=== PATIENT | female | born 1940 | race Caucasian/White ===

== ENCOUNTER 2016-11-21 06:18 | Observation (INO) | payer OTHER, BC ==
[~2016-11-21] VITALS: Ht 152.4 cm; Wt 60.5 kg
[2016-11-21 07:18] LABS: HEMATOCRIT 40.2 % (36.0-46.0); MCH 26.3 PG (29.0-34.0); MCHC 32.8 G/DL (30.0-36.0); MCV 80.1 FL (83-99); MEAN PLAT.VOLUME 10.6 uM^3 (9.5-12.4); PLATELET COUNT 232 K/uL (156-360); RBC DIS.WIDTH-CV 13.5 % (11.8-14.6); RBC DIS.WIDTH-SD 38.3 % (39-53); RED BLOOD COUNT 5.02 M/uL (3.80-5.20)
[2016-11-21 07:28] LABS: INTER. NORMALIZED RATIO 1.1; PROTHROMBIN TIME 11.4 (9.2-11.2); PTT 23.8 (25-32)
[2016-11-21 07:52] LABS: ANION GAP 9 MEQ/L (2-14); CHLORIDE 106 MEQ/L (99-109); GFR ESTIMATE (CALCULATED) > 59 mL/min/; GLUCOSE 152 mg/dL (70-99); POTASSIUM 3.4 MEQ/L (3.7-5.4); SAMPLE HEMOLYSIS CHECK 0; SAMPLE ICTERIC CHECK 0; SAMPLE LIPEMIA CHECK 0; SODIUM 140 MEQ/L (136-147); UREA NITROGEN (BUN) 22 mg/dL (9-23)
[2016-11-21 07:54] LABS: TROP-I INTERPRETATION NEGATIVE; TROPONIN-I < 0.01 ng/mL (0.0-0.30)
[2016-11-21 08:45] LABS: ADD MIUA? YES; BILIRUBIN NEGATIVE; BLOOD NEGATIVE; COLOR YELLOW ((YELLOW)); GLUCOSE (STRIP) NEGATIVE; KETONES TRACE; LEUKOCYTES MODERATE; NITRITE NEGATIVE; PROTEIN (STRIP) NEGATIVE; SPECIFIC GRAVITY 1.017 (1.000-1.030)
[2016-11-21 09:08] LABS: RED BLOOD CELLS NONE SEEN /HPF (0-5); WHITE BLOOD CELLS 0-5 /HPF (0-5)
[2016-11-21 09:09] LABS: BACTERIA NONE SEEN; CASTS PRESENT /LPF; CRYSTALS NONE SEEN; EPITHELIAL CELLS 1+; HYALINE CASTS 0-5 /LPF; MUCUS NONE SEEN
[2016-11-21] MEDS ORDERED: LOW DOSE ASPIRI81 M1 PO (09:39)
[2016-11-21] MEDS ORDERED: ULTRAM50 MG PO (09:39)
[2016-11-21] MEDS ORDERED: PROTONIX40 MG PO (09:39)
[2016-11-21] MEDS ORDERED: PLAVIX75 MG PO (09:40)
[2016-11-21] MEDS ORDERED: FOSAMAX70 MG PO (09:40)
[2016-11-21] MEDS ORDERED: MEVACOR20 MG PO (09:40)
[2016-11-21] MEDS ORDERED: EXELON PATCH9.5 MG TD (09:41)
[2016-11-21 12:42] VITALS: BP 161/70
[2016-11-21 16:10] VITALS: BP 165/78
[2016-11-21 16:41] LABS: TROP-I INTERPRETATION NEGATIVE; TROPONIN-I < 0.01 ng/mL (0.0-0.30)
[2016-11-21 17:23] LABS: Estimated Average Glucose 157 mg/dL (70-123); HEMOGLOBIN A1c (GLYCOHEMOGLOB) 7.1 % HGB (Below 5.7)
[2016-11-22 00:35] VITALS: BP 142/63
[2016-11-22 04:00] VITALS: BP 151/70
[2016-11-22 06:31] LABS: HDL CHOLESTEROL 40 MG/DL (Desirable>=50); LDL CHOLESTEROL 88 mg/dL (Desirable<100); NON-HDL CHOLESTEROL 122 mg/dL (Desirable<160); TOTAL CHOLESTEROL 162 mg/dL (Desirable<200); TRIGLYCERIDES 170 MG/DL (Normal: <150)
[2016-11-22 08:25] VITALS: BP 158/75
[2016-11-22 11:56] VITALS: BP 163/76
[2016-11-22 16:01] VITALS: BP 156/72
== END 2016-11-22 17:11 | disposition home health service (06) ==
LOC: EME 06:18 → EDOF 09:32 → 5WEST 11:06
PROVIDERS: Internal Medicine; Nurse Practitioner Family
DX: R20.0 Anesthesia of skin (principal); R42 Dizziness and giddiness; E86.0 Dehydration; R06.00 Dyspnea, unspecified; Z86.73 Personal history of transient ischemic attack (TIA), and cerebral infarction without residual deficits; F03.90 Unspecified dementia, unspecified severity, without behavioral disturbance, psychotic disturbance, mood disturbance, and anxiety; Z87.891 Personal history of nicotine dependence
CPT/HCPCS: 70450; 70551; 71020; 80048; 80061; 81003; 83036; 84443; 84484; 85027; 85610; 85730; 93005; 93306; 93880; 99281; 99285; G0378; G8978 GP CJ; G8979 GP CI; J1650; J7030

== ENCOUNTER 2017-04-04 19:53 | Emergency (ER) | payer OTHER, BC ==
[~2017-04-04] VITALS: Ht 152.4 cm; Wt 57.9 kg
[~2017-04-04 19:53] MED LIST: EXELON PATCH9.5 MG TD; FOSAMAX70 MG PO; LOW DOSE ASPIRI81 M1 PO; MEVACOR20 MG PO; PLAVIX75 MG PO; PROTONIX40 MG PO; ULTRAM50 MG PO
[2017-04-04 20:33] LABS: HEMATOCRIT 39.7 % (36.0-46.0); MCH 27.3 PG (29.0-34.0); MCHC 32.7 G/DL (30.0-36.0); MCV 83.2 FL (83-99); MEAN PLAT.VOLUME 9.9 uM^3 (9.5-12.4); PLATELET COUNT 245 K/uL (156-360); RBC DIS.WIDTH-CV 13.7 % (11.8-14.6); RED BLOOD COUNT 4.77 M/uL (3.80-5.20); WHITE BLOOD COUNT 10.9 K/uL (4.1-10.2)
[2017-04-04 20:41] LABS: CHLORIDE 105 mEq/L (99-109); POTASSIUM 3.7 mEq/L (3.7-5.4); SODIUM 138 mEq/L (136-147)
[2017-04-04 20:43] LABS: GLUCOSE 156 mg/dL (70-99)
[2017-04-04 20:45] LABS: ANION GAP 10 MEQ/L (2-14)
[2017-04-04 20:47] LABS: GFR ESTIMATE (CALCULATED) 51 mL/min/
[2017-04-04 20:48] LABS: UREA NITROGEN (BUN) 17 mg/dL (9-23)
[2017-04-04 21:38] LABS: ADD MIUA? YES; BILIRUBIN NEGATIVE; BLOOD NEGATIVE; COLOR YELLOW ((YELLOW)); GLUCOSE (STRIP) NEGATIVE; KETONES 20; LEUKOCYTES TRACE; NITRITE NEGATIVE; PROTEIN (STRIP) 30; SPECIFIC GRAVITY 1.012 (1.000-1.030); UROBILINOGEN 0.2 MG/DL (0.2-1.0)
[2017-04-04 21:41] LABS: BACTERIA RARE /HPF; EPITHELIAL CELLS RARE /HPF; GRANULAR CASTS 0-5 /LPF; MUCUS 1+ /LPF; RED BLOOD CELLS 0-5 /HPF (0-5)
[2017-04-04] MEDS ORDERED: BACTRIM,SEPT1 TABLET PO (22:33)
[2017-04-04] MEDS ORDERED: ZOFRAN4 MG PO (22:34)
[2017-04-04 23:29] VITALS: BP 105/64
== END 2017-04-04 23:32 | disposition home or self-care (01) ==
LOC: EME 19:53
PROVIDERS: Emergency Medicine
DX: N39.0 Urinary tract infection, site not specified (principal); E78.5 Hyperlipidemia, unspecified; I10 Essential (primary) hypertension; I25.2 Old myocardial infarction; Z87.891 Personal history of nicotine dependence
CPT/HCPCS: 80048; 81003; 85027; 87086; 99281; 99284; J2405; J7030